=== PATIENT | male | born 1980 | race Two or more races ===

== ENCOUNTER 2020-09-24 01:30 | Inpatient (IN) | payer BC, OTHER ==
[~2020-09-24] VITALS: Ht 180.3 cm; Wt 106.9 kg
[2020-09-24] MEDS ORDERED: ACETAMINOPHEN 500 MG TAB PO ONE (02:00)
[2020-09-24 02:15] LABS: Basophils # (auto) 0 10 ^3/uL (0-0.2); Eosinophils # (auto) 0 10 ^3/uL (0-0.8); Mean Corpuscular Hemoglobin 32.4 pg (28.0-32.0); Monocytes % (auto) 5.5 % (0.0-12.0); White Blood Cell 6.4 10^3/uL (4.4-10.8)
[2020-09-24 02:17] LABS: Basophils % (auto) 0.1 % (0.0-2.0); Hematocrit 53.4 % (41.0-53.0); Hemoglobin 18.9 g/dL (13.5-17.5); Lymphocytes # (auto) 1.2 10 ^3/uL (0.4-5.4); Lymphocytes % (auto) 19.3 % (10.0-50.0); Mean Corpuscular Hgb Conc. 35.4 g/dL (32.0-36.0); Mean Corpuscular Volume 91.4 fL (80.0-100.0); Monocytes # (auto) 0.3 10 ^3/uL (0-1.3); Neutrophils # (auto) 4.8 10 ^3/uL (1.6-8.6); Neutrophils % (auto) 75.1 % (37.0-80.0); Nucleated Red Blood Cells % 0.4 %; Platelet Count (auto) 160 10^3/uL (140-450); Red Blood Cells 5.84 10^6/uL (4.5-5.90); Red Cell Distribution Width 12.9 % (11.8-14.3)
[2020-09-24 02:31] LABS: Alanine Aminotransferase 39 U/L (16-61); Albumin 3.4 g/dL (3.4-5.0); Anion Gap 9 (5-15); Aspartate Aminotransferase 55 U/L (15-37); Blood Urea Nitrogen 14 mg/dL (7-18); Carbon Dioxide 21 mmol/L (21-32); Chloride 98 mmol/L (98-107); GFR African American 96 mL/min; GFR Non-African American 80 mL/min; Glucose 116 mg/dL (74-106); Potassium 3.7 mmol/L (3.5-5.1); Sodium 128 mmol/L (136-145)
[2020-09-24 02:34] LABS: INR 1.06 (0.9-1.15); Partial Thromboplastin Time 37.3 sec (23.0-31.2)
[2020-09-24 02:37] LABS: Alkaline Phosphatase 60 U/L (45-117); Bilirubin, Total 0.7 mg/dL (0.2-1.0); Total Protein 7.8 g/dL (6.4-8.2)
[2020-09-24] MEDS ORDERED: IBUPROFEN 600 MG TAB PO ONE (03:15)
[2020-09-24] MEDS ORDERED: IOHEXOL 350 MG/ML 100ML IJ ONE (06:05)
[2020-09-24] MEDS ORDERED: DexAMETHasone SOD PHOS 10MG/1ML VIAL INJ IV ONE (07:30)
[2020-09-24] MEDS ORDERED: AZITHROMYCIN 500MG/ 250ML 250 ML IV ONE (07:30)
[2020-09-24] MEDS ORDERED: cefTRIAXone 1GM/50ML D5W 50 ML IV ONE (07:30)
[2020-09-24] MEDS ORDERED: ENOXAPARIN SOD 100 MG/1 ML SYRINGE SC ONE (09:00)
[2020-09-24] MEDS ORDERED: ASPirin 81 mg TAB PO ONE (09:00)
[2020-09-24] MEDS ORDERED: NITROGLYCERIN 0.4 MG SL TAB SL PRN (09:15)
[2020-09-24] MEDS ORDERED: REMDESIVIR PER PHARMACY 0 ML IV SCH (09:15)
[2020-09-24] MEDS ORDERED: MORPHINE SULF INJ 2 MG/ML SYRINGE 1ML IV PRN (09:15)
[2020-09-24 09:40] VITALS: BP 112/76
[2020-09-24] MEDS ORDERED: TEMAZEPAM 15 MG CAP PO PRN (09:45)
[2020-09-24] MEDS ORDERED: LACTULOSE 20Gm/30ML SOLN PO PRN (09:45)
[2020-09-24] MEDS ORDERED: PROMETHAZINE HCL 25 MG/ML 1ML IV PRN (09:45)
[2020-09-24] MEDS ORDERED: DEXTROSE (50%) 50ML SYRG IV PRN (09:45)
[2020-09-24] MEDS ORDERED: ACETAMINOPHEN 500 MG TAB PO PRN (09:45)
[2020-09-24] MEDS ORDERED: traMADol HCL 50 MG TAB PO PRN (09:45)
[2020-09-24] MEDS: ENOXAPARIN SOD 40 MG/0.4 ML SYRINGE SC SCH ×2 (09:56→22:39)
[2020-09-24] MEDS: DexAMETHasone SOD PHOS 10MG/1ML VIAL INJ IV SCH (09:57)
[2020-09-24] MEDS: CHOLECALCIFEROL (VITD3) 2,000 UNIT CAP/TAB PO SCH (10:23)
[2020-09-24] MEDS: ZINC SULFATE 220mg CAP or TAB PO SCH (10:23)
[2020-09-24] MEDS: FLORASTOR (S. BOULARDII) 250 MG CAP PO SCH ×2 (10:23→22:38)
[2020-09-24] MEDS: SODIUM CHLORIDE 0.9% 1,000 ML IV SCH ×2 (10:23→23:28)
[2020-09-24] MEDS: levoFLOXacin 500MG 100 ML IV SCH (10:23)
[2020-09-24] MEDS: ASCORBIC ACID 1,000 MG TAB PO SCH (10:23)
[2020-09-24] MEDS: BUDESONIDE (INHALATION) 180 MCG IH IN SCH ×2 (11:40→18:43)
[2020-09-24] MEDS: ACCU-CHEK COMFORT CURVE STRIP VI SCH ×3 (12:02→22:39)
[2020-09-24 12:18] LABS: Urine Bacteria NONE SEEN /hpf (None Seen); Urine Blood TRACE /uL (Negative); Urine Hyaline Cast FEW /lpf (0 - 2); Urine Mucus FEW (None Seen); Urine Specific Gravity 1.044 (1.001-1.035); Urine WBC 1 /hpf (0 - 3)
[2020-09-24 16:38] VITALS: BP 105/66
[2020-09-24] MEDS ORDERED: REMDESIVIR 200 MG in NS 210ml LOADING DOSE ADULT IV ONE (17:00)
[2020-09-24 22:00] VITALS: BP 127/78
[2020-09-25 05:00] VITALS: BP 139/81
[2020-09-25] MEDS ORDERED: PNEUMOCOCCAL VACC POLYS 25 MCG/0.5 ML VIAL IM ONE (05:45)
[2020-09-25] MEDS: ACCU-CHEK COMFORT CURVE STRIP VI SCH (06:36)
[2020-09-25] MEDS: guaiFENesin-DM 100/10mg/5ml SYR PO PRN ×2 (06:45→21:33)
[2020-09-25 06:58] LABS: Basophils # (auto) 0 10 ^3/uL (0-0.2); Basophils % (auto) 0.1 % (0.0-2.0); Eosinophils # (auto) 0 10 ^3/uL (0-0.8); Hematocrit 49.2 % (41.0-53.0); Hemoglobin 17.2 g/dL (13.5-17.5); Lymphocytes # (auto) 1.1 10 ^3/uL (0.4-5.4); Lymphocytes % (auto) 16.5 % (10.0-50.0); Mean Corpuscular Hemoglobin 32.1 pg (28.0-32.0); Mean Corpuscular Volume 91.7 fL (80.0-100.0); Monocytes # (auto) 0.4 10 ^3/uL (0-1.3); Monocytes % (auto) 6.2 % (0.0-12.0); Neutrophils # (auto) 5.2 10 ^3/uL (1.6-8.6); Neutrophils % (auto) 77.2 % (37.0-80.0); Nucleated Red Blood Cells % 0.1 %; Platelet Count (auto) 171 10^3/uL (140-450); Red Blood Cells 5.37 10^6/uL (4.5-5.90); Red Cell Distribution Width 12.6 % (11.8-14.3); White Blood Cell 6.7 10^3/uL (4.4-10.8)
[2020-09-25 07:04] LABS: Albumin 2.8 g/dL (3.4-5.0); Calcium 7.9 mg/dL (8.5-10.1)
[2020-09-25 07:07] LABS: BUN/Creatinine Ratio 16.3; Bilirubin, Total 0.6 mg/dL (0.2-1.0); Total Protein 6.4 g/dL (6.4-8.2)
[2020-09-25 08:00] VITALS: BP 118/68
[2020-09-25] MEDS: levoFLOXacin 500MG 100 ML IV SCH (09:29)
[2020-09-25] MEDS: FLORASTOR (S. BOULARDII) 250 MG CAP PO SCH ×2 (09:30→21:33)
[2020-09-25] MEDS: ZINC SULFATE 220mg CAP or TAB PO SCH (09:30)
[2020-09-25] MEDS: DexAMETHasone SOD PHOS 10MG/1ML VIAL INJ IV SCH (09:30)
[2020-09-25] MEDS: ENOXAPARIN SOD 40 MG/0.4 ML SYRINGE SC SCH ×2 (09:31→21:33)
[2020-09-25] MEDS: CHOLECALCIFEROL (VITD3) 2,000 UNIT CAP/TAB PO SCH (09:31)
[2020-09-25] MEDS: ASCORBIC ACID 1,000 MG TAB PO SCH (09:31)
[2020-09-25] MEDS: BUDESONIDE (INHALATION) 180 MCG IH IN SCH ×2 (11:04→20:00)
[2020-09-25] MEDS: ALBUTEROL SULF HFA 90MCG INH 200DOSE IN PRN ×2 (11:04→20:00)
[2020-09-25 12:39] VITALS: BP 120/68
[2020-09-25] MEDS: REMDESIVIR 100mg 100 MG in SODIUM CHL 0.9% 230 ML IV SCH (14:30)
[2020-09-25 16:39] VITALS: BP 106/58
[2020-09-25] MEDS: SODIUM CHLORIDE 0.9% 1,000 ML IV SCH (16:39)
[2020-09-26] MEDS: SODIUM CHLORIDE 0.9% 1,000 ML IV SCH ×2 (01:39→15:28)
[2020-09-26 05:00] VITALS: BP 121/76
[2020-09-26 06:51] LABS: Basophils # (auto) 0 10 ^3/uL (0-0.2); Basophils % (auto) 0.1 % (0.0-2.0); Eosinophils # (auto) 0 10 ^3/uL (0-0.8); Hematocrit 46.5 % (41.0-53.0); Hemoglobin 16.5 g/dL (13.5-17.5); Lymphocytes # (auto) 0.9 10 ^3/uL (0.4-5.4); Mean Corpuscular Hemoglobin 32.3 pg (28.0-32.0); Mean Corpuscular Hgb Conc. 35.4 g/dL (32.0-36.0); Mean Corpuscular Volume 91.3 fL (80.0-100.0); Monocytes # (auto) 0.5 10 ^3/uL (0-1.3); Monocytes % (auto) 9.6 % (0.0-12.0); Neutrophils # (auto) 3.5 10 ^3/uL (1.6-8.6); Neutrophils % (auto) 71.3 % (37.0-80.0); Nucleated Red Blood Cells % 0.2 %; Platelet Count (auto) 180 10^3/uL (140-450); Red Cell Distribution Width 12.9 % (11.8-14.3); White Blood Cell 4.9 10^3/uL (4.4-10.8)
[2020-09-26 06:53] LABS: Albumin 2.6 g/dL (3.4-5.0); Calcium 7.7 mg/dL (8.5-10.1); Potassium 3.9 mmol/L (3.5-5.1)
[2020-09-26 07:04] LABS: BUN/Creatinine Ratio 16.7; Bilirubin, Total 0.5 mg/dL (0.2-1.0); CRP High Sensitivity 2.41 mg/dL (< 0.3); Total Protein 6.2 g/dL (6.4-8.2)
[2020-09-26] MEDS: BUDESONIDE (INHALATION) 180 MCG IH IN SCH ×2 (08:43→22:00)
[2020-09-26] MEDS: ALBUTEROL SULF HFA 90MCG INH 200DOSE IN PRN ×2 (08:44→22:47)
[2020-09-26 09:00] VITALS: BP 99/76
[2020-09-26] MEDS: FLORASTOR (S. BOULARDII) 250 MG CAP PO SCH ×2 (09:33→21:32)
[2020-09-26] MEDS: ZINC SULFATE 220mg CAP or TAB PO SCH (09:33)
[2020-09-26] MEDS: CHOLECALCIFEROL (VITD3) 2,000 UNIT CAP/TAB PO SCH (09:33)
[2020-09-26] MEDS: levoFLOXacin 500MG 100 ML IV SCH (09:33)
[2020-09-26] MEDS: ASCORBIC ACID 1,000 MG TAB PO SCH (09:33)
[2020-09-26] MEDS: ENOXAPARIN SOD 40 MG/0.4 ML SYRINGE SC SCH ×2 (09:33→21:33)
[2020-09-26 13:00] VITALS: BP 159/84
[2020-09-26] MEDS: REMDESIVIR 100mg 100 MG in SODIUM CHL 0.9% 230 ML IV SCH (15:28)
[2020-09-26] MEDS: guaiFENesin-DM 100/10mg/5ml SYR PO PRN (15:29)
[2020-09-26 17:10] VITALS: BP 114/72
[2020-09-26 22:00] VITALS: BP 128/76
[2020-09-27] MEDS: SODIUM CHLORIDE 0.9% 1,000 ML IV SCH ×2 (04:25→17:45)
[2020-09-27] MEDS: guaiFENesin-DM 100/10mg/5ml SYR PO PRN (04:59)
[2020-09-27 05:00] VITALS: BP 108/67
[2020-09-27] MEDS: BUDESONIDE (INHALATION) 180 MCG IH IN SCH ×2 (07:42→22:26)
[2020-09-27] MEDS: ALBUTEROL SULF HFA 90MCG INH 200DOSE IN PRN ×2 (07:42→22:26)
[2020-09-27 08:39] LABS: Basophils # (auto) 0 10 ^3/uL (0-0.2); Basophils % (auto) 0.1 % (0.0-2.0); Eosinophils # (auto) 0 10 ^3/uL (0-0.8); Hematocrit 48.1 % (41.0-53.0); Hemoglobin 16.6 g/dL (13.5-17.5); Lymphocytes # (auto) 1.4 10 ^3/uL (0.4-5.4); Lymphocytes % (auto) 17.6 % (10.0-50.0); Mean Corpuscular Hemoglobin 31.8 pg (28.0-32.0); Mean Corpuscular Hgb Conc. 34.5 g/dL (32.0-36.0); Mean Corpuscular Volume 92.3 fL (80.0-100.0); Monocytes # (auto) 0.7 10 ^3/uL (0-1.3); Monocytes % (auto) 8.8 % (0.0-12.0); Neutrophils # (auto) 5.6 10 ^3/uL (1.6-8.6); Neutrophils % (auto) 73.5 % (37.0-80.0); Nucleated Red Blood Cells % 0.2 %; Platelet Count (auto) 219 10^3/uL (140-450); Red Blood Cells 5.21 10^6/uL (4.5-5.90); Red Cell Distribution Width 12.9 % (11.8-14.3); White Blood Cell 7.7 10^3/uL (4.4-10.8)
[2020-09-27 08:52] LABS: Albumin 2.6 g/dL (3.4-5.0); Calcium 7.8 mg/dL (8.5-10.1); Potassium 3.9 mmol/L (3.5-5.1)
[2020-09-27 08:57] LABS: BUN/Creatinine Ratio 16.9; Bilirubin, Total 0.7 mg/dL (0.2-1.0); Total Protein 6.5 g/dL (6.4-8.2)
[2020-09-27] MEDS: FLORASTOR (S. BOULARDII) 250 MG CAP PO SCH ×2 (09:30→21:24)
[2020-09-27] MEDS: ASCORBIC ACID 1,000 MG TAB PO SCH (09:30)
[2020-09-27] MEDS: levoFLOXacin 500MG 100 ML IV SCH (09:30)
[2020-09-27] MEDS: ZINC SULFATE 220mg CAP or TAB PO SCH (09:30)
[2020-09-27] MEDS: ENOXAPARIN SOD 40 MG/0.4 ML SYRINGE SC SCH ×2 (09:31→21:25)
[2020-09-27] MEDS: CHOLECALCIFEROL (VITD3) 2,000 UNIT CAP/TAB PO SCH (09:31)
[2020-09-27 09:35] VITALS: BP 108/67
[2020-09-27 10:27] VITALS: BP 117/69
[2020-09-27 12:50] VITALS: BP 117/74
[2020-09-27] MEDS: REMDESIVIR 100mg 100 MG in SODIUM CHL 0.9% 230 ML IV SCH (15:02)
[2020-09-27 17:18] VITALS: BP 124/78
[2020-09-27 23:09] VITALS: BP 121/69
[2020-09-28 05:17] VITALS: BP 121/74
[2020-09-28] MEDS: SODIUM CHLORIDE 0.9% 1,000 ML IV SCH ×2 (06:52→20:25)
[2020-09-28 07:36] LABS: Potassium 3.7 mmol/L (3.5-5.1)
[2020-09-28 07:40] LABS: Albumin 2.7 g/dL (3.4-5.0); BUN/Creatinine Ratio 14.5; Calcium 8.4 mg/dL (8.5-10.1)
[2020-09-28 07:50] LABS: Bilirubin, Total 1.1 mg/dL (0.2-1.0); Total Protein 6.7 g/dL (6.4-8.2)
[2020-09-28 07:53] LABS: Basophils # (auto) 0 10 ^3/uL (0-0.2); Basophils % (auto) 0.3 % (0.0-2.0); Eosinophils # (auto) 0 10 ^3/uL (0-0.8); Eosinophils % (auto) 0.1 % (0.0-7.0); Hematocrit 46.6 % (41.0-53.0); Hemoglobin 16.8 g/dL (13.5-17.5); Lymphocytes # (auto) 1.2 10 ^3/uL (0.4-5.4); Lymphocytes % (auto) 16.2 % (10.0-50.0); Mean Corpuscular Hemoglobin 32.9 pg (28.0-32.0); Mean Corpuscular Volume 91.4 fL (80.0-100.0); Monocytes # (auto) 0.8 10 ^3/uL (0-1.3); Monocytes % (auto) 10.6 % (0.0-12.0); Neutrophils # (auto) 5.4 10 ^3/uL (1.6-8.6); Neutrophils % (auto) 72.8 % (37.0-80.0); Platelet Count (auto) 241 10^3/uL (140-450); Red Cell Distribution Width 12.9 % (11.8-14.3); White Blood Cell 7.4 10^3/uL (4.4-10.8)
[2020-09-28 09:00] VITALS: BP 119/78
[2020-09-28] MEDS: levoFLOXacin 500MG 100 ML IV SCH (09:13)
[2020-09-28] MEDS: ZINC SULFATE 220mg CAP or TAB PO SCH (09:13)
[2020-09-28] MEDS: FLORASTOR (S. BOULARDII) 250 MG CAP PO SCH ×3 (09:13→22:00)
[2020-09-28] MEDS: ASCORBIC ACID 1,000 MG TAB PO SCH (09:14)
[2020-09-28] MEDS: CHOLECALCIFEROL (VITD3) 2,000 UNIT CAP/TAB PO SCH (09:14)
[2020-09-28] MEDS: ENOXAPARIN SOD 40 MG/0.4 ML SYRINGE SC SCH ×2 (09:18→21:27)
[2020-09-28 13:00] VITALS: BP 113/77
[2020-09-28] MEDS: Ensure HIGH Protein Chocolate 8oz Bottle PO SCH ×2 (15:57→18:19)
[2020-09-28] MEDS: REMDESIVIR 100mg 100 MG in SODIUM CHL 0.9% 230 ML IV SCH (15:58)
[2020-09-28 17:00] VITALS: BP 116/75
[2020-09-28] MEDS: guaiFENesin-DM 100/10mg/5ml SYR PO PRN (21:27)
[2020-09-28] MEDS: ALBUTEROL SULF HFA 90MCG INH 200DOSE IN PRN (22:48)
[2020-09-28] MEDS: BUDESONIDE (INHALATION) 180 MCG IH IN SCH ×2 (22:48→22:53)
[2020-09-29 05:00] VITALS: BP 126/73
[2020-09-29 06:38] LABS: Basophils # (auto) 0 10 ^3/uL (0-0.2); Basophils % (auto) 0.2 % (0.0-2.0); Eosinophils # (auto) 0 10 ^3/uL (0-0.8); Eosinophils % (auto) 0.5 % (0.0-7.0); Hematocrit 47.5 % (41.0-53.0); Hemoglobin 16.8 g/dL (13.5-17.5); Lymphocytes # (auto) 1.2 10 ^3/uL (0.4-5.4); Mean Corpuscular Hemoglobin 32.3 pg (28.0-32.0); Mean Corpuscular Hgb Conc. 35.3 g/dL (32.0-36.0); Mean Corpuscular Volume 91.6 fL (80.0-100.0); Monocytes # (auto) 0.8 10 ^3/uL (0-1.3); Monocytes % (auto) 11.4 % (0.0-12.0); Neutrophils # (auto) 4.9 10 ^3/uL (1.6-8.6); Neutrophils % (auto) 69.9 % (37.0-80.0); Platelet Count (auto) 299 10^3/uL (140-450); Red Blood Cells 5.19 10^6/uL (4.5-5.90); Red Cell Distribution Width 12.8 % (11.8-14.3); White Blood Cell 6.9 10^3/uL (4.4-10.8)
[2020-09-29 06:50] LABS: BUN/Creatinine Ratio 16.9; Calcium 8.3 mg/dL (8.5-10.1); Potassium 3.7 mmol/L (3.5-5.1)
[2020-09-29] MEDS: BUDESONIDE (INHALATION) 180 MCG IH IN SCH (07:10)
[2020-09-29] MEDS: ALBUTEROL SULF HFA 90MCG INH 200DOSE IN PRN (07:11)
[2020-09-29] MEDS: Ensure HIGH Protein Chocolate 8oz Bottle PO SCH ×2 (08:38→11:47)
[2020-09-29 09:00] VITALS: BP 122/73
[2020-09-29] MEDS: FLORASTOR (S. BOULARDII) 250 MG CAP PO SCH (09:21)
[2020-09-29] MEDS: CHOLECALCIFEROL (VITD3) 2,000 UNIT CAP/TAB PO SCH (09:21)
[2020-09-29] MEDS: levoFLOXacin 500MG 100 ML IV SCH (09:21)
[2020-09-29] MEDS: ASCORBIC ACID 1,000 MG TAB PO SCH (09:21)
[2020-09-29] MEDS: ZINC SULFATE 220mg CAP or TAB PO SCH (09:21)
[2020-09-29] MEDS: ENOXAPARIN SOD 40 MG/0.4 ML SYRINGE SC SCH (09:22)
[2020-09-29] MEDS ORDERED: ASCO10003 PO (10:35)
[2020-09-29] MEDS ORDERED: NYS5LQ MT (10:35)
[2020-09-29] MEDS ORDERED: CHOL1CAP47 PO (10:35)
[2020-09-29 12:05] VITALS: BP 118/75
[2020-09-29 12:21] VITALS: BP 131/79
== END 2020-09-29 14:40 | disposition home or self-care (01) | DRG 177 ==
LOC: EDBD 01:30 → ER 01:33 → TELE 09:09 → TELE-EAST 13:53
PROVIDERS: ADMIT Internal Medicine; ATTEND Internal Medicine Pulmonary Disease
PROC: XW033E5 Introduction of Remdesivir Anti-infective into Peripheral Vein, Percutaneous Approach, New Technology Group 5 (ICD-10-PCS; principal; 2020-09-24)
DX: U07.1 COVID-19 (principal); J12.82 Pneumonia due to coronavirus disease 2019; E87.1 Hypo-osmolality and hyponatremia; R73.9 Hyperglycemia, unspecified; E66.01 Morbid (severe) obesity due to excess calories; Z83.3 Family history of diabetes mellitus; Z68.27 Body mass index [BMI] 27.0-27.9, adult; Z79.899 Other long term (current) drug therapy
CPT/HCPCS: 36415; 71045; 71275; 80048; 80053; 81001; 82728; 82962; 83036; 83605; 84484; 85025; 85379; 85610; 85730; 86141; 87040; 87077; 87186; 87426; 93005; 94640; 96365; 96367; 96375; G0378; J0696; J1100; J1956

== ENCOUNTER 2022-03-18 09:43 | Emergency (ER) | payer BC, MEDICAID ==
[~2022-03-18] VITALS: Ht 180.3 cm; Wt 104.5 kg
[~2022-03-18 09:43] MED LIST: ASCO10003 PO; CHOL1CAP47 PO; NYS5LQ MT
[2022-03-18 10:21] VITALS: BP 139/80
[2022-03-18] MEDS ORDERED: KETOROLAC TROMETH 60MG/2ML VIAL IM ONE (10:30)
[2022-03-18] MEDS ORDERED: PRED20TA2 PO (11:01)
[2022-03-18] MEDS ORDERED: TRAM-297 PO (11:01)
== END 2022-03-18 11:08 | disposition home or self-care (01) ==
LOC: ER 09:43
DX: M51.06 Intervertebral disc disorders with myelopathy, lumbar region (principal); M51.16 Intervertebral disc disorders with radiculopathy, lumbar region
CPT/HCPCS: 72100; 96372; 99283; J1885

== ENCOUNTER 2022-03-24 10:39 | Emergency (ER) | payer MEDICAID ==
[~2022-03-24] VITALS: Ht 180.3 cm; Wt 102.0 kg
[~2022-03-24 10:39] MED LIST changes: +PRED20TA2 PO; +TRAM-297 PO
[2022-03-24 11:48] VITALS: BP 147/90
[2022-03-24] MEDS ORDERED: BACL10TA PO (11:48)
[2022-03-24] MEDS ORDERED: IBUP800T27 PO (11:48)
[2022-03-24] MEDS ORDERED: KETOROLAC TROMETH 60MG/2ML VIAL IM ONE ×2 (12:00→12:15)
== END 2022-03-24 12:25 | disposition home or self-care (01) ==
LOC: ER 10:39
DX: G89.4 Chronic pain syndrome (principal); M54.50 Low back pain, unspecified; Z87.39 Personal history of other diseases of the musculoskeletal system and connective tissue; Z79.1 Long term (current) use of non-steroidal anti-inflammatories (NSAID); Z79.899 Other long term (current) drug therapy
CPT/HCPCS: 96372; 99283; J1885

== ENCOUNTER 2022-06-10 07:10 | Emergency (ER) | payer MEDICAID ==
[~2022-06-10] VITALS: Ht 180.3 cm; Wt 99.9 kg
[~2022-06-10 07:10] MED LIST changes: +BACL10TA PO; +IBUP800T27 PO
[2022-06-10 08:09] VITALS: BP 130/89
[2022-06-10] MEDS ORDERED: methylPREDNISolone SOD SUCC 125 MG/2 ML VL IM ONE (08:15)
[2022-06-10] MEDS ORDERED: cefTRIAXone SOD 1,000 MG VL IM ONE (08:15)
[2022-06-10] MEDS ORDERED: AZIT500T66 PO (08:46)
[2022-06-10] MEDS ORDERED: IBUP800T27 PO (08:46)
== END 2022-06-10 08:52 | disposition home or self-care (01) ==
LOC: ER 07:10
DX: J03.90 Acute tonsillitis, unspecified (principal); H66.92 Otitis media, unspecified, left ear
CPT/HCPCS: 71045; 96372; 99284; J0696; J2930; 93005

== ENCOUNTER 2022-06-11 20:56 | Emergency (ER) | payer MEDICAID ==
[~2022-06-11] VITALS: Ht 180.3 cm; Wt 220.0 kg
[~2022-06-11 20:56] MED LIST changes: +AZIT500T66 PO
[2022-06-11 21:55] LABS: Urine Bacteria NONE SEEN /hpf (None Seen); Urine Blood Negative /uL (Negative); Urine Mucus FEW (None Seen); Urine Specific Gravity 1.023 (1.001-1.035); Urine WBC 11 /hpf (0 - 3)
[2022-06-11 22:12] LABS: Basophils # (auto) 0.1 10 ^3/uL (0-0.2); Basophils % (auto) 0.3 % (0.0-2.0); Eosinophils # (auto) 0 10 ^3/uL (0-0.8); Eosinophils % (auto) 0.2 % (0.0-7.0); Hematocrit 43.8 % (41.0-53.0); Hemoglobin 14.8 g/dL (13.5-17.5); Mean Corpuscular Hemoglobin 30.4 pg (28.0-32.0); Mean Corpuscular Hgb Conc. 33.8 g/dL (32.0-36.0); Mean Corpuscular Volume 90.2 fL (80.0-100.0); Monocytes # (auto) 0.7 10 ^3/uL (0-1.3); Monocytes % (auto) 4.5 % (0.0-12.0); Neutrophils # (auto) 14.1 10 ^3/uL (1.6-8.6); Red Blood Cells 4.86 10^6/uL (4.5-5.90); Red Cell Distribution Width 13.3 % (11.8-14.3); White Blood Cell 15.9 10^3/uL (4.4-10.8)
[2022-06-11 22:22] LABS: Albumin 3.4 g/dL (3.4-5.0); Calcium 8.7 mg/dL (8.5-10.1); Potassium 3.9 mmol/L (3.5-5.1)
[2022-06-11 22:24] LABS: BUN/Creatinine Ratio 19.2
[2022-06-11 22:27] LABS: Bilirubin, Total 0.5 mg/dL (0.2-1.0); Total Protein 7.8 g/dL (6.4-8.2)
[2022-06-11] MEDS ORDERED: PIPERACILLIN-TAZOB 3.375GM 100 ML IV ONE (23:45)
[2022-06-11] MEDS ORDERED: DexAMETHasone SOD PHOS 10MG/1ML VIAL INJ IV ONE (23:45)
[2022-06-12] MEDS ORDERED: IOHEXOL 300 MG/ML 100ML BOTTLE IJ ONE (00:36)
[2022-06-12 13:53] VITALS: BP 108/68
== END 2022-06-12 14:12 | disposition short-term general hospital (02) ==
LOC: ER 20:56
DX: J02.9 Acute pharyngitis, unspecified (principal); R59.0 Localized enlarged lymph nodes; R07.0 Pain in throat; D72.829 Elevated white blood cell count, unspecified; R21 Rash and other nonspecific skin eruption; R50.9 Fever, unspecified; R06.02 Shortness of breath; Z79.1 Long term (current) use of non-steroidal anti-inflammatories (NSAID); Z79.2 Long term (current) use of antibiotics; Z79.899 Other long term (current) drug therapy; Z20.822 Contact with and (suspected) exposure to COVID-19
CPT/HCPCS: 36415; 70491; 71045; 80053; 81001; 83605; 84484; 85025; 85652; 86141; 86592; 86703; 87426; 87804; 96365; 96367; 99285; J1100; J2543; Q9967

== ENCOUNTER 2022-08-24 07:48 | Emergency (ER) | payer MEDICAID ==
[~2022-08-24] VITALS: Ht 180.3 cm; Wt 105.1 kg
[2022-08-24 07:55] VITALS: BP 129/89
[2022-08-24] MEDS ORDERED: KETOROLAC TROMETH 30 MG/ML 1ML VIAL IM ONE (08:30)
[2022-08-24] MEDS ORDERED: cefTRIAXone SOD 1,000 MG VL IM ONE (08:30)
[2022-08-24] MEDS ORDERED: AZITTAB PO (08:57)
[2022-08-24] MEDS ORDERED: IBUP800T26 PO (08:57)
== END 2022-08-24 09:10 | disposition home or self-care (01) ==
LOC: ER 07:48
DX: J02.9 Acute pharyngitis, unspecified (principal); Z79.1 Long term (current) use of non-steroidal anti-inflammatories (NSAID); Z79.2 Long term (current) use of antibiotics; Z79.899 Other long term (current) drug therapy; Z88.1 Allergy status to other antibiotic agents
CPT/HCPCS: 96372; 99284; J0696; J1885

== ENCOUNTER 2023-09-25 08:46 | Inpatient (IN) | payer MEDICAID ==
[~2023-09-25] VITALS: Ht 177.8 cm; Wt 122.9 kg
[2023-09-25] VITALS (16 sets, daily range): BP systolic 112–140; BP diastolic 69–98; PULSE 63–86; RESP 15–20; TEMP 97.3–98.5; O2SAT 96–99
[~2023-09-25 08:46] MED LIST changes: +AZITTAB PO; +IBUP-1455 PO; +IBUP-1456 PO; -IBUP800T27 PO
[2023-09-25 09:01] LABS: Basophils # (auto) 0.1 10 ^3/uL (0-0.2); Basophils % (auto) 0.9 % (0.0-2.0); Eosinophils # (auto) 0.3 10 ^3/uL (0-0.8); Eosinophils % (auto) 4.5 % (0.0-7.0); Hematocrit 47.7 % (41.0-53.0); Hemoglobin 16.7 g/dL (13.5-17.5); Lymphocytes # (auto) 3.2 10 ^3/uL (0.4-5.4); Lymphocytes % (auto) 45.9 % (10.0-50.0); Mean Corpuscular Hemoglobin 32.1 pg (28.0-32.0); Mean Corpuscular Hgb Conc. 35.1 g/dL (32.0-36.0); Mean Corpuscular Volume 91.5 fL (80.0-100.0); Monocytes # (auto) 0.5 10 ^3/uL (0-1.3); Monocytes % (auto) 6.6 % (0.0-12.0); Neutrophils # (auto) 2.9 10 ^3/uL (1.6-8.6); Neutrophils % (auto) 42.1 % (37.0-80.0); Nucleated Red Blood Cells % 0.2 %; Red Blood Cells 5.21 10^6/uL (4.5-5.90); White Blood Cell 6.9 10^3/uL (4.4-10.8)
[2023-09-25] MEDS: ASPirin 325 MG TAB PO ONE (09:28)
[2023-09-25 09:29] LABS: Alanine Aminotransferase 63 U/L (7-40); Albumin 4.3 g/dL (3.2-4.8); Alkaline Phosphatase 101 U/L (46-116); Anion Gap 3 (5-15); Aspartate Aminotransferase 20 U/L (13-40); BUN/Creatinine Ratio 10.1 (10.0-20.0); Bilirubin, Total 0.6 mg/dL (0.2-1.0); Blood Urea Nitrogen 9 mg/dL (9-23); Calcium 9.4 mg/dL (8.5-10.1); Carbon Dioxide 29 mmol/L (20-30); Chloride 108 mmol/L (98-107); Glucose 119 mg/dL (74-106); INR 0.97 (0.9-1.15); Partial Thromboplastin Time 28.6 SEC (24.5-34.5); Potassium 4.6 mmol/L (3.5-5.1); Prothrombin Time 10.3 sec (9.3-11.8); Sodium 140 mmol/L (136-145); Total Protein 6.9 g/dL (5.7-8.2)
[2023-09-25] MEDS: NITROGLYCERIN 0.4 MG SL TAB SL ONE (09:29)
[2023-09-25] MEDS: LIDOCAINE 2%HCL (LOCAL ANESTH.) INJ 20ML MDV ONE (13:25)
[2023-09-25] MEDS: IODIXANOL 320MG/ML 100ML BTL IV ONE ×2 (13:25→13:41)
[2023-09-25] MEDS ORDERED: ACETAMINOPHEN 325 MG TAB PO PRN ×2 (13:30→13:45)
[2023-09-25] MEDS ORDERED: HYDROcodone-ACET 5/325MG TAB PO PRN (13:30)
[2023-09-25] MEDS ORDERED: ONDANSETRON HCL 4 MG/2 ML VIAL IV PRN ×2 (13:30→13:45)
[2023-09-25] MEDS ORDERED: MORPHINE SULFATE INJ 2 MG/ml SYRG IV PRN ×4 (13:30→13:45)
[2023-09-25] MEDS ORDERED: DOCUSATE SOD 100 MG CAP PO PRN ×2 (13:30→13:45)
[2023-09-25] MEDS ORDERED: NITROGLYCERIN 0.4 MG SL TAB SL PRN ×2 (13:30→13:45)
[2023-09-25] MEDS: VERAPAMIL 2.5MG/ML INJ 2ML VIAL IV ONE (13:37)
[2023-09-25] MEDS: ANGIOMAX 250 MG VIAL IV ONE (13:37)
[2023-09-25] MEDS: HEPARIN SODIUM (PORCINE) 5000 UNITS/ML 1ML VIAL ONE (13:37)
[2023-09-25] MEDS: fentaNYL CITRATE 100 MCG/2 ML VL ONE (13:37)
[2023-09-25] MEDS: MIDAZOLAM HCL 2MG/2ML 2ml VIAL (1mg/ml) ONE (13:38)
[2023-09-25] MEDS: SODIUM CHL 0.9% 50 ML ONE (13:38)
[2023-09-25] MEDS ORDERED: SODIUM CHLOR 0.9% PF (SALINE LOCK) 10ML VIAL/SYR IV SCH (14:00)
[2023-09-25] MEDS: ASPirin 81 mg TAB ONE (14:25)
[2023-09-25] MEDS: TICAGRELOR 90 MG TAB ONE (14:25)
[2023-09-25] MEDS: EPTIFIBATIDE INJ (2MG/ML) 10ML VIAL IV ONE (14:25)
[2023-09-25] MEDS: HYDROcodone-ACET 5/325MG TAB PO PRN (16:44)
[2023-09-25] MEDS: SODIUM CHLOR 0.9% PF (SALINE LOCK) 10ML VIAL/SYR IV SCH (17:25)
[2023-09-25] MEDS: IPRATROPIUM BROM 0.5 MG/2.5ML INH SOL NEB PRN (18:31)
[2023-09-25] MEDS: TICAGRELOR 90 MG TAB PO SCH (21:44)
[2023-09-25] MEDS: ATORVASTATIN 20 MG TAB PO SCH (21:44)
[2023-09-26] VITALS (8 sets, daily range): BP systolic 115–134; BP diastolic 67–90; PULSE 70–82; RESP 17–19; TEMP 97.3–98.4; O2SAT 93–97
[2023-09-26 06:45] LABS: Basophils # (auto) 0 10 ^3/uL (0-0.2); Basophils % (auto) 0.5 % (0.0-2.0); Eosinophils # (auto) 0.3 10 ^3/uL (0-0.8); Eosinophils % (auto) 3.5 % (0.0-7.0); Hematocrit 46.4 % (41.0-53.0); Hemoglobin 16.2 g/dL (13.5-17.5); Lymphocytes % (auto) 38.7 % (10.0-50.0); Mean Corpuscular Hemoglobin 31.7 pg (28.0-32.0); Mean Corpuscular Hgb Conc. 34.9 g/dL (32.0-36.0); Mean Corpuscular Volume 90.7 fL (80.0-100.0); Monocytes # (auto) 0.5 10 ^3/uL (0-1.3); Monocytes % (auto) 6.5 % (0.0-12.0); Neutrophils # (auto) 3.9 10 ^3/uL (1.6-8.6); Neutrophils % (auto) 50.8 % (37.0-80.0); Nucleated Red Blood Cells % 0.6 %; Red Blood Cells 5.12 10^6/uL (4.5-5.90); Red Cell Distribution Width 13.3 % (11.8-14.3); White Blood Cell 7.7 10^3/uL (4.4-10.8)
[2023-09-26 07:05] LABS: Alanine Aminotransferase 58 U/L (7-40); Albumin 3.9 g/dL (3.2-4.8); Alkaline Phosphatase 75 U/L (46-116); Anion Gap 8 (5-15); Aspartate Aminotransferase 19 U/L (13-40); BUN/Creatinine Ratio 8.3 (10.0-20.0); Bilirubin, Total 0.7 mg/dL (0.2-1.0); Blood Urea Nitrogen 8 mg/dL (9-23); Calcium 9.4 mg/dL (8.7-10.4); Carbon Dioxide 25 mmol/L (20-30); Chloride 105 mmol/L (98-107); Glucose 102 mg/dL (74-106); Potassium 3.8 mmol/L (3.5-5.1); Sodium 138 mmol/L (136-145)
[2023-09-26 07:06] LABS: Total Protein 6.5 g/dL (5.7-8.2)
[2023-09-26] MEDS: CHOLECALCIFEROL 4000 UNIT PO SCH (10:00)
[2023-09-26] MEDS: ASCORBIC ACID 1000 MG PO SCH (10:00)
[2023-09-26] MEDS ORDERED: ASCORBIC ACID 1000 MG PO SCH (10:00)
[2023-09-26] MEDS ORDERED: PATIENTS OWN MEDICATION (Cholecalciferol (Vitamin D3 Super Strength) 4,000 UNIT) PO SCH (10:00)
[2023-09-26] MEDS ORDERED: ASPI-325 PO (11:27)
[2023-09-26] MEDS ORDERED: TICA90TA PO (11:27)
[2023-09-26] MEDS ORDERED: METO25TA93 PO (11:27)
[2023-09-26] MEDS ORDERED: ATOR-507 PO (11:27)
[2023-09-26] MEDS: ASPirin 81 mg TAB PO SCH (11:30)
[2023-09-27] MEDS ORDERED: METOPROLOL SUCCINATE XL 50 MG TAB PO SCH (10:00)
[2023-09-28 08:45] LABS: Hepatitis B Surface Antigen Negative (Negative)
[2023-09-28 09:07] LABS: Hepatitis C Antibody Negative (Negative)
== END 2023-09-26 16:27 | disposition home or self-care (01) | DRG 175 ==
LOC: ER 08:46 → TELE-EAST 13:23 → TELE 13:23 → ER 13:23 → TELE-EAST 17:21
PROVIDERS: ADMIT Internal Medicine Geriatric Medicine; ATTEND Emergency Medicine
PROC: 027035Z Dilation of Coronary Artery, One Artery with Two Drug-eluting Intraluminal Devices, Percutaneous Approach (ICD-10-PCS; principal; 2023-09-25)
PROC: 3E033PZ Introduction of Platelet Inhibitor into Peripheral Vein, Percutaneous Approach (ICD-10-PCS; 2023-09-25)
PROC: B211YZZ Fluoroscopy of Multiple Coronary Arteries using Other Contrast (ICD-10-PCS; 2023-09-25)
PROC: 4A023N7 Measurement of Cardiac Sampling and Pressure, Left Heart, Percutaneous Approach (ICD-10-PCS; 2023-09-25)
DX: I25.10 Atherosclerotic heart disease of native coronary artery without angina pectoris (principal); I21.4 Non-ST elevation (NSTEMI) myocardial infarction; E66.9 Obesity, unspecified; I10 Essential (primary) hypertension; F41.9 Anxiety disorder, unspecified; J45.909 Unspecified asthma, uncomplicated; Z79.1 Long term (current) use of non-steroidal anti-inflammatories (NSAID); Z79.899 Other long term (current) drug therapy; Z86.16 Personal history of COVID-19; Z88.0 Allergy status to penicillin; Z68.38 Body mass index [BMI] 38.0-38.9, adult
CPT/HCPCS: 36415; 71045; 80053; 84484; 85025; 85610; 85730; 86803; 87340; 92941; 93005; 93306; 93458; 94640; 99152; C1874; G0378; J2250; Q9967